=== PATIENT | male | born 1995 | race African-American/Black ===

== ENCOUNTER 2017-10-09 01:40 | Inpatient (IN) | payer OTHER ==
[2017-10-09] MEDS ORDERED: Propofol 1,000 MG/100 ML VIAL IV ONE (01:46)
[2017-10-09 02:01] LABS: #Lymphocytes 1.4 thou/uL (1.20-3.40); #Monocytes 1.2 thou/uL (0.11-0.59); #Neutrophils 12.8 thou/uL (1.40-6.50); %Basophils 0.3 % (0.0-1.0); %Eosinophils 0.3 % (0.0-10.0); %Neutrophils 82.4 % (42.0-75.0); Hemoglobin 12.9 g/dL (14.0-18.0); Mean Corpuscular HGB CONC 33.9 g/dL (32.0-36.0); Mean Corpuscular Hemoglobin 31.1 pg (27.0-31.0); Mean Corpuscular Volume 91.7 fl (80.0-94.0); Platelet Count 158 thou/uL (130-400); RBC Distribution Width 11.7 % (11.5-14.5); Red Blood Cell (RBC) Count 4.14 mill/uL (4.70-6.10); White Blood Cell (WBC) Count 15.5 thou/uL (4.8-10.8)
[2017-10-09 02:13] LABS: ALT (SGPT) 53 U/L (8-55); AST (SGOT) 105 U/L (5-34); Albumin 3.8 g/dL (3.5-5.0); Alkaline Phosphatase 75 U/L (40-150); BUN (Urea Nitrogen) 20 mg/dL (8.9-20.6); Bilirubin, Total 0.5 mg/dL (0.2-1.2); Calc. Creatinine Clearance 0 mL/min (70-130); Calcium 8.5 mg/dL (7.8-10.44); Carbon Dioxide 22 mmol/L (22-29); Chloride 109 mmol/L (98-107); Estimated GFR-MDRD 68; Globulin 2.9 g/dL (2.4-3.5); Glucose 113 mg/dL (70-105); Potassium 4.3 mmol/L (3.5-5.1); Protein, Total 6.7 g/dL (6.0-8.3); Sodium 137 mmol/L (136-145)
[2017-10-09 02:15] LABS: Anion Gap 10 mmol/L (10-20)
[2017-10-09] MEDS ORDERED: fentaNYL Citrate/PF 2,000 MCG in Sodium Chloride 0.9% 60 ML IV SCH (02:22)
[2017-10-09 02:28] LABS: INR-International Normal Ratio 1.1; Prothrombin Time 14.4 SEC (12.0-14.7)
[2017-10-09] MEDS ORDERED: Midazolam HCl 2 mg/2 ml Vial ONE (02:29)
[2017-10-09] MEDS ORDERED: Ventilator Sedation Protocol 1 EACH FS ONE (02:38)
[2017-10-09] MEDS ORDERED: Dextrose 50% Abboject 50 ML SYRINGE SLOW IVP PRN (02:38)
[2017-10-09] MEDS ORDERED: Ondansetron HCl/PF 4 MG/2 ML Vial IVP PRN (02:38)
[2017-10-09] MEDS ORDERED: Ondansetron ODT 4 MG TAB PO PRN ×2 (02:38→12:25)
[2017-10-09] MEDS ORDERED: Dextrose 5% in Water 1,000 ML IV PRN (02:38)
[2017-10-09 02:42] LABS: PTT 22.8 SEC (22.9-36.1)
[2017-10-09] MEDS ORDERED: Sodium Chloride 0.9% 1,000 ML IV SCH (02:45)
[2017-10-09] MEDS ORDERED: Lorazepam 2 MG/ML VIAL SLOW IVP PRN (02:46)
[2017-10-09] MEDS ORDERED: Morphine 4 MG/ML VIAL SLOW IVP PRN (02:46)
[2017-10-09] MEDS ORDERED: Propofol BOLUS 1,000 MG/100 ML VIAL IV PRN (02:46)
[2017-10-09] MEDS ORDERED: Fentanyl BOLUS 250 ML IVPB PRN (02:46)
[2017-10-09 02:53] LABS: Actual Bicarbonate (HCO3a) 23.9 mEq/L (22-26); Base Excess (BEa) -1.8 mEq/L (0 (+/-) 2.5); CO2 Tension 44.4 mmHg (35.0-45.0); Hematocrit-ABG 38.2 % (42.0-52.0); Hemoglobin (Hb) 12.6 g/dL (14.0-18.0); O2 Tension (PaO2) 72.1 mmHg (80.0-100.0); pH, Arterial 7.35 (7.35-7.45)
[2017-10-09 02:54] LABS: Analyzer IN Cardio ER; Calcium, Ionized 1.2 mmol/L (1.12-1.30)
[2017-10-09 02:56] LABS: Puncture Site LBA
[2017-10-09] MEDS ORDERED: Lorazepam 2 MG/ML VIAL ONE (03:20)
[2017-10-09] MEDS: Propofol 1,000 MG/100 ML VIAL IV PRN ×2 (04:11→09:16)
[2017-10-09 05:58] LABS: Anion Gap 13 mmol/L (10-20); BUN (Urea Nitrogen) 18 mg/dL (8.9-20.6); CK (CPK) 3980 U/L (30-200); Calc. Creatinine Clearance 128 mL/min (70-130); Calcium 8.9 mg/dL (7.8-10.44); Carbon Dioxide 23 mmol/L (22-29); Chloride 107 mmol/L (98-107); Estimated GFR-MDRD 83; Glucose 105 mg/dL (70-105); Sodium 139 mmol/L (136-145)
[2017-10-09 08:00] LABS: Actual Bicarbonate (HCO3a) 23.1 mEq/L (22-26); Base Excess (BEa) -1.1 mEq/L (0 (+/-) 2.5); Hematocrit-ABG 27.2 % (42.0-52.0); Hemoglobin (Hb) 12.4 g/dL (14.0-18.0); pH, Arterial 7.41 (7.35-7.45)
[2017-10-09 08:01] LABS: Calcium, Ionized 1.2 mmol/L (1.12-1.30); Puncture Site RBA
[2017-10-09] MEDS: Polyethylene Glycol 3350 17 GM Packet PO SCH (08:01)
[2017-10-09] MEDS: Pantoprazole 40 MG VIAL IVP SCH (08:01)
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
[2017-10-09] MEDS ORDERED: Sodium Chloride 0.9% 500 ML IV SCH (09:00)
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
[2017-10-09] MEDS: Sodium Bicarbonate 150 MEQ in Dextrose 5% in Water 1,000 ML IV SCH ×2 (09:16→18:09)
--- NOTE | 2017-10-09 09:34 | RAD ---
AP VIEW CHEST: HISTORY: Patient with trauma after drug use. FINDINGS: AP view chest is obtained on 10/09/17. Comparison is made to previous exam from earlier in the day on 10/09/17. AP view chest demonstrates again left-sided chest tube in place. Nasogastric and endotracheal tubes are seen. There appears to be development of some area of lucency surrounding the cardiac silhouette concerning for pneumopericardium. Gas is also now seen in the right neck possibly representing supe rior pneumomediastinum and possible gas extending into the lower neck soft tissues. Previously noted pulmonary contusions have decreased density compared to the previous exam. IMPRESSION: 1. Possible developing superior mediastinal and pericardial gas. 2. Left-sided chest tube is in good position. 3. Slightly improving aeration in the lung parenchymal contusions. POS: [facility]
[2017-10-09] MEDS ORDERED: traMADol HCl 50 MG TAB PO PRN ×2 (12:06)
[2017-10-09] MEDS ORDERED: Cyclobenzaprine 10 MG TAB PO PRN (12:06)
[2017-10-09] MEDS ORDERED: Ibuprofen 600 MG TAB PO SCH (12:30)
[2017-10-09] MEDS: Acetaminophen 500 MG TAB PO SCH ×3 (14:06→23:23)
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
[2017-10-09] MEDS: Ibuprofen 600 MG TAB PO SCH (21:39)
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
[2017-10-10] MEDS: Sodium Bicarbonate 150 MEQ in Dextrose 5% in Water 1,000 ML IV SCH (02:51)
[2017-10-10 04:49] LABS: #Eosinphils 0.1 thou/uL (0.0-0.7); #Lymphocytes 1.3 thou/uL (1.20-3.40); #Monocytes 0.7 thou/uL (0.11-0.59); #Neutrophils 5.8 thou/uL (1.40-6.50); %Basophils 0.5 % (0.0-1.0); %Eosinophils 1.2 % (0.0-10.0); %Lymphocytes 16.4 % (21.0-51.0); %Monocytes 8.9 % (0.0-10.0); Hemoglobin 11.8 g/dL (14.0-18.0); Mean Corpuscular HGB CONC 33.4 g/dL (32.0-36.0); Mean Corpuscular Hemoglobin 30.9 pg (27.0-31.0); Mean Corpuscular Volume 92.4 fl (80.0-94.0); Mean Platelet Volume 8.1 fL (7.4-10.4); Platelet Count 172 thou/uL (130-400); RBC Distribution Width 11.8 % (11.5-14.5); Red Blood Cell (RBC) Count 3.83 mill/uL (4.70-6.10)
[2017-10-10 05:05] LABS: Anion Gap 7 mmol/L (10-20); BUN (Urea Nitrogen) 9 mg/dL (8.9-20.6); Calc. Creatinine Clearance 152 mL/min (70-130); Calcium 8.6 mg/dL (7.8-10.44); Carbon Dioxide 32 mmol/L (22-29); Chloride 104 mmol/L (98-107); Estimated GFR-MDRD Greater than 90; Glucose 113 mg/dL (70-105); Magnesium 1.9 mg/dL (1.6-2.6); Phosphorus 2.9 mg/dL (2.3-4.7); Potassium 3.6 mmol/L (3.5-5.1); Sodium 139 mmol/L (136-145)
[2017-10-10] MEDS: Ibuprofen 600 MG TAB PO SCH ×3 (06:00→20:53)
[2017-10-10] MEDS: Acetaminophen 500 MG TAB PO SCH ×3 (06:00→17:32)
[2017-10-10] MEDS: Pantoprazole 40 MG VIAL IVP SCH (09:55)
[2017-10-10] MEDS: Polyethylene Glycol 3350 17 GM Packet PO SCH (09:55)
--- NOTE | 2017-10-10 09:59 | RAD ---
AP VIEW CHEST: DATE: 10/10/17. HISTORY: Patient with fall from apartment with altered state of mind. FINDINGS: Comparison is made to previous exam from 10/09/17. AP view chest demonstrates again left-sided chest tube seen. Previously noted areas of possible subc utaneous emphysema in the lower neck are less prominent. The pericardial possible area of gas has al so decreased. Left-sided chest tube remains in place. Pulmonary vascular congestion and cardiomegal y noted. Some mild airspace opacity seen throughout the lungs compatible with some pulmonary edema. IMPRESSION: 1. Left-sided chest tube in place. 2. The patient has been extubated and the nasogastric tube has been removed. POS: [facility]
[2017-10-10 11:26] VITALS: BMI 28.1
--- NOTE | 2017-10-10 15:05 | PRG ---
DATE OF SERVICE: 10/10/2017 SUBJECTIVE: Mr. Chamberlain is in no distress. He is awake and alert, he answers questions quickly. He denies neck pain. OBJECTIVE: LUNGS: Clear. HEART: Regular rhythm. ABDOMEN: Soft. LABORATORY DATA: White count 8.0, hemoglobin 11.8, platelets 172,000. Sodium 139, potassium 3.6, chloride 104, bicarbonate 32, BUN 9, creatinine 1.1. RADIOGRAPHIC FINDINGS: Chest radiograph shows patchy bilateral infiltrates. IMPRESSION: Status post respiratory failure associated with a drug use and trauma. We had discussion about the use of K2 and the potential fatal effects. He is fortunate that he did not paralyze from the waist down. His pulmonary infiltrates could be secondary to fall. They could be secondary to aspirated gastric secretions. I do not think it is unreasonable to place him on Augmentin at this time. I do not think he needs broad spectrum IV antibiotics. There is no reported drug allergies. He is stable to move out of the Critical Care Unit. I would probably treat him for 7-10 days for a possible infectious process. Chest tube management will continue per General Surgery. Critical care time 35 min. WEID
--- NOTE | 2017-10-10 17:01 | PRG ---
DATE OF SERVICE: 10/10/2017 SUBJECTIVE: Mr. Chamberlain is doing well this morning. He is still currently on the Critical Care Unit . He has no complaints. His pain is well controlled and he is tolerating clear liquids without diff iculty, states that he is passing gas. OBJECTIVE: VITAL SIGNS: Temperature is 98.7, heart rate 74, blood pressure 131/71, respirations 16, oxygen satu ration is 100% on room air. GENERAL: The patient is resting comfortably in bed. He is awake, alert, and oriented x3. [place] c nathan scale is 15. HEENT: Remarkable only for his abrasions to his left ear, otherwise unremarkable and unchanged. NECK: We were able to clear him out of his C-collar. He had no midline tenderness. No tenderness, pain, or difficulty with range of motion of his neck. [place] collar will be discontinued. LUNGS: Clear to auscultation bilaterally with good inspiratory and expiratory effort. The patient w as able to get to 4000 on his incentive spirometry with minimal difficulty and no cough. HEART: Regular rate and rhythm. ABDOMEN: Soft, flat, nontender with active bowel sounds. Left chest tube is in place, does not show an air leak. The patient is in TLSO brace. EXTREMITIES: Neurovascularly intact x4. LABORATORY FINDINGS: White blood cell count 8.0, hemoglobin 11.8, hematocrit 35.4, platelets 172. S odium 139, potassium 3.6, chloride 104, CO2 of 32, BUN 9, creatinine 1.10, glucose 113, magnesium 1.9 , phosphorus 2.9. Radiographs this morning showed a left-sided chest tube in place and questionable pulmonary vascular congestion and cardiomegaly noted. This may be artifact due to the patient's radiographs being shot through his TLSO brace. ASSESSMENT AND PLAN: 1. Status post fall from third floor. 2. L2 compression fracture. 3. Multiple left-sided rib fractures. 4. Left pneumothorax, improved with a chest tube. 5. Multiple contusions and abrasions. 6. Possible rhabdomyolysis, improved. Plan will be to discontinue IV fluids, advance the patient's diet to a regular diet, continue his rolf n management, pulmonary toilet. Chest tube will be placed to waterseal. Discontinue his [place] colla r, discontinue his Hernandez and transfer the patient to the surgical floor. The evaluation and examinat ion were discussed with Dr. Sorensen, who was in agreement with this plan. The patient's family are a lso at bedside this morning when I examined him and we discussed the plan and they were happy for our caring of their son.
[2017-10-10] MEDS ORDERED: Amoxicillin/Potassium Clav 875 MG TAB PO SCH (21:00)
[2017-10-11] MEDS: Acetaminophen 500 MG TAB PO SCH ×3 (00:28→12:00)
[2017-10-11 04:31] LABS: #Basophils 0.1 thou/uL (0.0-0.2); #Eosinphils 0.3 thou/uL (0.0-0.7); #Lymphocytes 1.7 thou/uL (1.20-3.40); #Monocytes 0.6 thou/uL (0.11-0.59); %Basophils 0.6 % (0.0-1.0); %Monocytes 7.7 % (0.0-10.0); %Neutrophils 65.7 % (42.0-75.0); Hemoglobin 11.4 g/dL (14.0-18.0); Mean Corpuscular HGB CONC 33.9 g/dL (32.0-36.0); Mean Corpuscular Hemoglobin 30.8 pg (27.0-31.0); Mean Corpuscular Volume 90.7 fl (80.0-94.0); Mean Platelet Volume 7.1 fL (7.4-10.4); Platelet Count 160 thou/uL (130-400); RBC Distribution Width 11.5 % (11.5-14.5); Red Blood Cell (RBC) Count 3.71 mill/uL (4.70-6.10); White Blood Cell (WBC) Count 7.7 thou/uL (4.8-10.8)
[2017-10-11 04:52] LABS: Anion Gap 9 mmol/L (10-20); BUN (Urea Nitrogen) 10 mg/dL (8.9-20.6); Calc. Creatinine Clearance 166 mL/min (70-130); Calcium 8.9 mg/dL (7.8-10.44); Carbon Dioxide 28 mmol/L (22-29); Chloride 105 mmol/L (98-107); Estimated GFR-MDRD Greater than 90; Glucose 100 mg/dL (70-105); Phosphorus 3.3 mg/dL (2.3-4.7); Potassium 3.9 mmol/L (3.5-5.1); Sodium 138 mmol/L (136-145)
[2017-10-11] MEDS: Ibuprofen 600 MG TAB PO SCH ×2 (06:06→14:27)
--- NOTE | 2017-10-11 09:19 | RAD ---
3PORTABLE CHEST XRAY: DATE: 10/11/17. HISTORY: Followup left-sided thoracostomy tube. COMPARISON: 10/10/17. FINDINGS: Left-sided thoracostomy tube remains in place and unchanged in position. No obvious pneumothorax is seen on this exam. The most superior aspect of each lung apex is not well seen due to overlying osse ous structures, but no definitive pneumothorax is appreciated. There are increased linear patchy den sities at the right lung base which could be related to either aspiration pneumonitis or developing p neumonia. Lungs are otherwise clear. No pleural effusion is visualized. Cardiac silhouette and pul monary vasculature are within normal limits. IMPRESSION: 1. Left-sided thoracostomy tube stable in position. No obvious pneumothorax is appreciated. 2. Suggested gas density adjacent to the right cardiac border is less conspicuous on today's exam. However, there has been interval development of increased interstitial and patchy densities of the ri ght lung base which could be related to either aspiration pneumonitis or developing pneumonia. Eva nued followup is recommended. POS: [facility]
[2017-10-11] MEDS: Polyethylene Glycol 3350 17 GM Packet PO SCH (09:35)
[2017-10-11] MEDS ORDERED: Carbamide Peroxide 6.5% Otic Drops 15 ml Bottle EA EAR SCH ×2 (14:00→21:00)
--- NOTE | 2017-10-11 15:45 | RAD ---
PORTABLE CHEST: Date: 10/11/17 HISTORY: Chest tube removal. COMPARISON: Earlier exam done today. FINDINGS: Heart size appears borderline for technique. Left chest tube has been removed. No signs of any left-s ided pneumothorax. Parenchymal changes in right base are stable. IMPRESSION: Interval removal of left chest tube. No signs of pneumothorax. POS: [facility]
[2017-10-11 15:58] VITALS: BP 149/76; TEMP 98.4
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
== END 2017-10-11 18:37 | disposition home or self-care (01) | DRG 88 ==
LOC: ERS 01:40 → CCU 02:38 → SURG A 10-10 13:52
PROVIDERS: ADMIT Surgery; ATTEND Surgery
PROC: 5A1935Z Respiratory Ventilation, Less than 24 Consecutive Hours (ICD-10-PCS; principal; 2017-10-09)
DX: S06.0X9A Concussion with loss of consciousness of unspecified duration, initial encounter (principal); J96.90 Respiratory failure, unspecified, unspecified whether with hypoxia or hypercapnia; S32.029A Unspecified fracture of second lumbar vertebra, initial encounter for closed fracture; S22.42XA Multiple fractures of ribs, left side, initial encounter for closed fracture; J93.9 Pneumothorax, unspecified; R40.2422 Glasgow coma scale score 9-12, at arrival to emergency department; W17.89XA Other fall from one level to another, initial encounter; Y93.39 Activity, other involving climbing, rappelling and jumping off; Y92.89 Other specified places as the place of occurrence of the external cause; T79.6XXA Traumatic ischemia of muscle, initial encounter; S09.8XXA Other specified injuries of head, initial encounter; F17.210 Nicotine dependence, cigarettes, uncomplicated
CPT/HCPCS: 36415; 70450; 71045; 72125; 80048; 80053; 82150; 82550; 82805; 83735; 84100; 85025; 85610; 85730; 86850; 86900; 86901; 94002; 94640; 96365; 96367; 96374; 96375; 99292; C9113; G0390; J2060; J2250; J2704; J3010; J7050; J7070; J7620; L0190; Q0162

== ENCOUNTER 2017-11-30 10:42 | Outpatient (CLI) | payer OTHER ==
--- NOTE | 2017-11-30 12:03 | RAD ---
TWO VIEW CHEST: HISTORY: Left rib fractures. COMPARISON: Portable chest from 10/11/2017. FINDINGS: There is evidence of a healing fracture involving the posterior left 7th rib. Possible subtle fractu res involving the posterior left 5th and 6th ribs as well. The lungs are clear. No evidence of infi ltrate, effusion, or pneumothorax. The heart and mediastinum are unremarkable. The thoracic vertebr ae maintain height and alignment. IMPRESSION: Evidence of healing left rib fractures. The chest is otherwise unremarkable. POS: [facility]
== END 2017-11-30 10:43 | disposition home or self-care (01) ==
LOC: RAD 10:42
PROVIDERS: ATTEND Physician Assistant
DX: S22.42XD Multiple fractures of ribs, left side, subsequent encounter for fracture with routine healing (principal)
CPT/HCPCS: 71046

== ENCOUNTER 2017-12-23 15:04 | Outpatient (CLI) | payer OTHER ==
--- NOTE | 2017-12-23 15:36 | RAD ---
LUMBAR SPINE TWO VIEWS: Date: 12-23-17 History: Lumbar spine fracture of L2 vertebral body. FINDINGS: No anterolisthesis or retrolisthesis. No displaced fracture. Pedicles appear intact on frontal imagin g. Minimal anterior wedging noted at L1, L2, and L3 which could represent sequellae of prior fracture or physiologic wedging. There is an obliquely oriented calcific density overlying the L2 left transv erse process on frontal imaging which could represent a corticated osseous fragment associated with p rior L2 fracture. Comparison with prior imaging and/or CT would be beneficial. IMPRESSION: Subtle corticated osseous density projects just to the left of the L2 vertebral body on frontal imagi ng, overlying the left L2 transverse process which may signify age indeterminate fracture. POS: [facility]
== END 2017-12-23 15:05 | disposition home or self-care (01) ==
LOC: TBSIIMAG 15:04
PROVIDERS: ATTEND Neurological Surgery
DX: M54.5 Low back pain (principal)
CPT/HCPCS: 72100

== ENCOUNTER 2018-01-11 13:59 | Outpatient (CLI) | payer OTHER ==
--- NOTE | 2018-01-11 15:01 | CT ---
CT LUMBAR SPINE NONCONTRAST: HISTORY: Low back pain. Fracture. COMPARISON: 12/23/17. FINDINGS: Oblique fracture through the left L2 pedicle and superior facet extending into the left posterolatera l aspect of the superior end plate with 0.2 cm distraction is again demonstrated. Right posterior el ements are maintained. Minimal retropulsion of the superior end plate involvement. Degenerative changes include moderate stenosis central canal at the L3-4 and L4-5 levels due to disk bulges and circumferential degenerative changes. IMPRESSION: 1. Minimally distracted fracture involving the left L2 superior end plate and pedicle with minimal d istraction. Slight kyphotic angulation suggests that this was a hyperflexion injury. 2. Degenerative changes including central canal stenosis of the lower lumbar spine. POS: [facility]
== END 2018-01-11 14:00 | disposition home or self-care (01) ==
LOC: TBSIIMAG 13:59
PROVIDERS: ATTEND Neurological Surgery
DX: S22.009D Unspecified fracture of unspecified thoracic vertebra, subsequent encounter for fracture with routine healing (principal); S32.009D Unspecified fracture of unspecified lumbar vertebra, subsequent encounter for fracture with routine healing; M47.896 Other spondylosis, lumbar region; M48.02 Spinal stenosis, cervical region
CPT/HCPCS: 72131